=== PATIENT | male | born 1955 | race Caucasian/White ===

== ENCOUNTER 2016-06-30 11:23 | Day surgery (SDC) | payer OTHER ==
[2016-06-30] VITALS (7 sets, daily range): BP systolic 122–132; BP diastolic 61–84; PULSE 60–68; RESP 13–17; O2SAT 96–100
[~2016-06-30] VITALS: Ht 177.8 cm; Wt 113.4 kg
[~2016-06-30 11:23] MED LIST: ASPI-973 PO; ATRV10T PO; CeFAZolin Inj 2 GM in IV Premix 1 EACH IV ONE; LAN125 PO; LISI10TA PO; VERA240C PO
[2016-06-30] MEDS ORDERED: Propofol 10,000 mCg/mL 20 mL Inj ONE (11:24)
[2016-06-30] MEDS ORDERED: Ondansetron 2 mg/mL 2 mL Inj ONE (11:24)
[2016-06-30] MEDS ORDERED: fentaNYL-PF 50 mCg/mL 2 mL Inj ONE (11:24)
[2016-06-30] MEDS: Lactated Ringer's 1,000 ML IV SCH ×2 (12:16→13:23)
[2016-06-30] MEDS ORDERED: CeFAZolin Inj 2 gm / 50mL D5W IV ONE (12:23)
[2016-06-30] MEDS ORDERED: Bupivacaine-MPF 0.25% 30 mL Inj INFILTRATE ONE (13:22)
[2016-06-30] MEDS ORDERED: Lactated Ringer's 500 ML IV PRN (13:27)
[2016-06-30] MEDS ORDERED: Lactated Ringer's 1,000 ML IV SCH (13:27)
--- NOTE | 2016-06-30 13:27 | PCM.HPANE ---
Patient Data Surgeon Admitting Provider: Attending Provider:Av Delaney MD Primary Care Physician:Esau Garcia MD Other Provider:Hansa Jjingham Anesthesia Reason for Visit Right Groin Pain Ht/WT & BMI Height (Feet): 5 Height (Inches): 10 Weight (Kilograms): 113.398 Body Mass Index 35.00 Allergies Coded Allergies: No Known Allergies (Unverified , 06/29/16) Past Anesthesia History Anesthesia History: Denies:: Anesthesia Reactions, Malignant Hyperthermia Diabetes History Hx Diabetes?: No MRSA MRSA: No Medications Blood Thinner: Aspirin Hypertension Medication: Yes (LISINOPRIL) Reported Medications Verapamil ER 240 Mg Cap24h.vag384 Mg PO DAILY Ref 0 06/29/16 Lisinopril 10 Mg [id number] Mg PO DAILY 30 Days Ref 0 06/29/16 Atorvastatin (Lipitor)10 Mg Tab10 Mg PO DAILY Ref 0 06/29/16 Digoxin (Lanoxin)0.125 Mg Tablet0.25 Mg PO DAILY 30 Days Ref 0 06/29/16 Aspirin 81 Mg [id number] Mg PO DAILY Ref 0 06/29/16 History History of ENT Problems?: Yes Other HEENT Pertinent History: S/P TONSILLECTOMY Hx of Heart Problems?: Yes Cardiovascular History: Positive for:: Atrial Fibrillation (HX PAF) Hypertension (HYPERLIPIDEMIA) Irregular Heartbeat (HX PAF) Denies:: Heart Murmur Hx of Respiratory Problem?: No Respiratory History: Denies:: Use of C-PAP Machine Hx Neurologic Problems?: No Hx of GI Problems?: Yes Other GI Pertinent History: RT INGUINAL HERNIA=CURRENT PROBLEM C/OF INTERMITTANT RT GROIN PAIN 90# INTENTIONAL WEIGHT LOSS OVER LAST 1 YR Hx of Problems?: No Male Hx: Denies:: Prostate Problems Scrotal Mass (CURRENT EPIDIDYMITIS) Testicular Surgery Skin History: Positive for:: History Skin Disorders? (REDUNDANT ABD/GROIN SKIN FROM WEIGHT LOSS) Denies:: Pressure Ulcers Hx Musculoskeletal Problems?: No Hx of Psycho/Social Problems?: No Hx Surgeries?: Yes (TONSILLECTOMY) Hx Any Other Health Problems?: Yes Other History: Denies:: Cancer Endocrine Disease Hospitalization Thyroid Disease History Blood Transfusions: Denies:: Blood Transfusions Hx Diabetes: No Hx Alcohol Use: NoHave You Smoked inLast 12 mo: No Stop/Bang S-Snoring: Do You Snore Loudly: No T-Tired: feel tired, fatigued: No O-Obsered: Observed not breath: No P-Blood Pressure: treated: Yes B- Body Mass Index > 35 kg/m2: Yes A- Age over 50: Yes N- Neck Large Circumference: Yes G- Gender Male: Yes ZOHRA Total Score: 5 Risk Assessment Category Category 1A: Patient has history of documented sleep apnea, and HAS NOT received any narcotic, sedative or anesthesia administration during this stay. Category 1B: Patient has history of documented sleep apnea, and HAS received any narcotic , sedative or anesthesia administration during this stay Category 2: Patient has SUSPECTED Obstructive Sleep Apnea, and HAS received any narcotic , sedative or anesthesia administration during this stay. Category 3: Patient has SUSPECTED Obstructive Sleep Apnea and HAS NOT received narcotic, sedative or anesthesia administration during this stay. Category 4: Outpatient in Procedural Areas with known sleep apnea or who screen positive for High Risk via the STOP/BANG questionnaire. Exam Exam General Appearance: Alert, Oriented X3, Cooperative, No Acute Distress HEENT/AIRWAY: MP 2 Lungs: Clear to Auscultation, Normal Air Movement Heart: Exam Unremarkable, Regular Rate/Rhythm, No Murmurs/Rubs/Gallops Meds/Labs/Diagnostics Labs Test 06/30/16 11:50 Plan Impression Patient chart reviewed, patient interviewed and anesthestic plan with risks, benefits, and alternatives discussed, and informed consent obtained. ASA Physical Status: ASA3 Severe Disease Anesthetic Plan: GA Bene/Risks/Altern/Consents: Yes HP Complete Prior to Induction: Yes David Ann MD Jun 30, 2016 12:11
[2016-06-30] MEDS ORDERED: Ondansetron 2 mg/mL 2 mL Inj IVPUSH PRN (13:30)
[2016-06-30] MEDS ORDERED: HYDROmorphone 1 mg/mL Inj IVPUSH PRN (13:30)
[2016-06-30] MEDS ORDERED: Dexamethasone 4 mg/mL Inj IVPUSH PRN (13:30)
[2016-06-30] MEDS ORDERED: MetoCLOpramide 5 mg/mL 2 mL Inj IVPUSH PRN (13:30)
[2016-06-30] MEDS ORDERED: EPHEDrine Sulfate 50 mg/mL Inj IVPUSH PRN (13:30)
[2016-06-30] MEDS ORDERED: fentaNYL-PF 50 mCg/mL 2 mL Inj IVPUSH PRN (13:30)
[2016-06-30] MEDS ORDERED: Phenylephrine 10,000 mCg/mL Inj IVPUSH PRN (13:30)
[2016-06-30] MEDS ORDERED: Bacitracin Ointment Packet TOPICAL ONE (14:03)
[2016-06-30] MEDS ORDERED: oxyCODONE-Acetamin 5-325 mg Tablet PO PRN (14:15)
--- NOTE | 2016-06-30 15:04 | PCM.ANEP1 ---
Post Anesthesia Phase 1 PACU Phase 1 Assessment Vital Signs Vital Signs Date Time Temp Pulse Resp B/P Pulse Ox O2 Delivery O2 Flow Rate FiO2 06/30/16 14:46 68 16 132/76 99 Room Air 06/30/16 14:38 65 16 128/77 98 Room Air 06/30/16 14:20 65 17 126/80 98 Room Air 06/30/16 14:17 64 13 126/61 98 Room Air 06/30/16 14:10 36.5 60 17 132/74 96 Room Air 06/30/16 12:30 35.7 67 14 122/84 100 Room Air Anesthetic Administered: GA Level of Alertness: Awake, talking THOMAS's with Equal Strength: Yes Pain: No Nausea or Vomiting: No Oxygen Delivery: Room Air Lungs: Clear to Auscultation, Normal Air Movement Dermatome Level: Full Sensation David Ann MD Jun 30, 2016 15:04
--- NOTE | 2016-06-30 15:10 | PCM.ANEP2 ---
Post Anesthesia Evaluation ASA/CMS Post Anesthesia VS in Patient's Normal Range?: Yes Resp Stable; Airway Patent?: Yes CV Function & Hydration Stable: Yes Mental Status Recovered?: Yes Pain control Satisfactory?: Yes N/V Control Satisfactory?: Yes David Ann MD Jun 30, 2016 15:10
--- NOTE | 2016-06-30 15:30 | OP ---
[address] [address] OPERATIVE REPORT PATIENT: BRYCE REIS : 1955 MR#: [id number] ADMIT: 06/30/2016 JOB ID: [id number] DATE OF SURGERY: 06/30/2016 ANESTHESIA: General. PREOPERATIVE DIAGNOSIS(ES): Symptomatic right inguinal hernia. POSTOPERATIVE DIAGNOSIS(ES): Right cord lipoma. OPERATION: Open repair of right inguinal hernia using mesh. SURGEON: Av Delaney MD. [employer] PROCESSING WORKER: Justo Hernandez PA-C (the front office medical assistant was required for the safe and timely completion of the case) and YUE Sarkar. COMPLICATIONS: None. ESTIMATED BLOOD LOSS: Minimal. CONDITION: Satisfactory. SPECIMEN: None. FINDINGS: The inguinal floor appeared intact. The cord was investigated and no hernia sac could be identified. There was a small cord lipoma. A standard repair using soft mesh was performed. INDICATION/SIGNIFICANT HISTORY: The patient is a 61-year-old, obese man who has been having some right inguinal discomfort over the past few months. He has not noted a palpable lump. He was referred to me. By exam, I could appreciate no inguinal hernia. We therefore obtained an ultrasound, which suggested the presence of a small inguinal hernia. He therefore elected to undergo repair. OPERATIVE TECHNIQUE: The patient was taken into the operating room and placed in supine position. General anesthesia was administered, and perioperative antibiotics were given. The groin and abdomen were prepped and draped in a standard surgical fashion, and a procedural pause was performed. I injected a local anesthetic and then made a right inguinal incision. Dissection was carried down through skin and subcutaneous tissue. The aponeurosis of the external oblique was opened in line with the fibers out to the external ring. The cord was circumferentially dissected free. The floor appeared intact. The cord was then investigated. No hernia sac could be identified. There was a small lipoma, which was excised. A piece of Bard soft polypropylene mesh was then trimmed to the appropriate size and secured in place with interrupted 2-0 PDS sutures. The result was a nice reinforcement of the floor and recreation of the internal ring. The aponeurosis of the external oblique was then closed with a running 3-0 Vicryl. Lei's closed with interrupted 3-0. Skin was closed using 4-0 Monocryl. The entire procedure was well tolerated.
== END 2016-06-30 23:59 | disposition home or self-care (01) ==
LOC: SAS 11:23
PROVIDERS: ATTEND General Practice
DX: K40.90 Unilateral inguinal hernia, without obstruction or gangrene, not specified as recurrent (principal); D17.79 Benign lipomatous neoplasm of other sites; I48.91 Unspecified atrial fibrillation; I10 Essential (primary) hypertension; E78.5 Hyperlipidemia, unspecified; Z79.82 Long term (current) use of aspirin
CPT/HCPCS: 36415; 49505; 80162; 93005; C1781; J0690; J2250; J2405; J3010; J7120